=== PATIENT | male | born 1955 | race Caucasian/White ===

== ENCOUNTER 2017-09-19 05:24 | Inpatient (IN) | payer BC, OTHER ==
[~2017-09-19] VITALS: Ht 180.3 cm; Wt 93.2 kg
[2017-09-19] MEDS ORDERED: SODIUM CHLORIDE 0.9% 1,000ML IVBOLUS ONE ×2 (06:00→06:30)
[2017-09-19] MEDS ORDERED: SODIUM CHLORIDE FLUSH 10ML SYR IVF ONE (06:00)
[2017-09-19 06:08] LABS: PH, VENOUS 7.371 pH (7.320-7.420)
[2017-09-19] MEDS ORDERED: ASPI-496 PO (06:11)
[2017-09-19] MEDS ORDERED: OMEG1CAP23 PO (06:11)
[2017-09-19] MEDS ORDERED: ATOR-2 PO (06:11)
[2017-09-19] MEDS ORDERED: FENO160T PO (06:11)
[2017-09-19] MEDS ORDERED: LISI1TAB7 PO (06:11)
[2017-09-19] MEDS ORDERED: NIAC500T4 PO (06:11)
[2017-09-19] MEDS ORDERED: MULT-6 PO (06:11)
[2017-09-19] MEDS ORDERED: CARV12.52 PO (06:11)
[2017-09-19 06:15] LABS: BASOPHILS # (AUTO) 0.04 x10^3/uL (0-0.1); BASOPHILS % (AUTO) 0 % (0-1); EOSINOPHILS # (AUTO) 0.05 x10^3/uL (0-0.4); EOSINOPHILS % (AUTO) 1 % (1-7); LYMPHOCYTES # (AUTO) 1.61 x10^3/uL (1-3.4); LYMPHOCYTES % (AUTO) 15 % (22-44); MD NO; MEAN CORPUSCULAR HEMOGLOBIN 34.2 pg (27.5-34.5); MEAN CORPUSCULAR HGB CONC 34.8 g/dL (33.2-36.2); MEAN CORPUSCULAR VOLUME 98.3 fL (81-97); MEAN PLATELET VOLUME 9.2 fL (7.4-10.4); MONOCYTES # (AUTO) 1.12 x10^3/uL (0.2-0.8); MONOCYTES % (AUTO) 11 % (2-9); NEUTROPHILS # (AUTO) 7.62 x10^3/uL (1.8-6.8); NEUTROPHILS % (AUTO) 73 % (42-75); PLATELET COUNT 206 x10^3/uL (130-400); RED BLOOD COUNT 3.83 x10^6/uL (4.38-5.82); RED CELL DISTRIBUTION WIDTH 12.6 % (9.4-14.8)
[2017-09-19 06:22] LABS: ALANINE AMINOTRANSFERASE 32 U/L (12-78); ALBUMIN 3.7 g/dL (3.4-5.0); ANION GAP 9 mmol/L (5-15); CALCIUM 9.1 mg/dL (8.5-10.1); CHLORIDE 103 mmol/L (98-107); CREATININE 2.65 mg/dL (0.7-1.3)
[2017-09-19 06:24] LABS: ALKALINE PHOSPHATASE 42 U/L (45-117); BILIRUBIN,TOTAL 1.3 mg/dL (0.2-1.0); TOTAL PROTEIN 7.4 g/dL (6.4-8.2)
[2017-09-19 06:42] LABS: HEMOGLOBIN A1C 6.6 % (4.2-6.3)
[2017-09-19 06:45] LABS: ACETONE, SERUM Negative (Negative)
[2017-09-19 08:06] VITALS: BP 112/69
[2017-09-19 08:13] VITALS: BP 112/69
[2017-09-19] MEDS ORDERED: POLYETHYLENE GLYCOL 17 GM PACKET PO PRN (10:00)
[2017-09-19] MEDS ORDERED: morphine SULFATE 10 MG/ML, 1ML IVPush PRN (10:00)
[2017-09-19] MEDS ORDERED: OXYcodone IR 5MG TABLET PO PRN (10:00)
[2017-09-19] MEDS ORDERED: DOCUSATE 100 MG CAPSULE PO PRN (10:00)
[2017-09-19] MEDS ORDERED: ONDANSETRON ODT 4 MG PO PRN (10:00)
[2017-09-19] MEDS ORDERED: PROMETHAZINE 25 MG/ML, 1ML IM PRN (10:00)
[2017-09-19] MEDS ORDERED: hydrALAzine 20 MG/ML, 1ML IVPush PRN (10:00)
[2017-09-19] MEDS ORDERED: ONDANSETRON 2MG/ML, 2ML IVPush PRN (10:00)
[2017-09-19] MEDS ORDERED: ACETAMINOPHEN 325 MG TABLET PO PRN (10:00)
[2017-09-19] MEDS ORDERED: BISACODYL 10 MG SUPP PR PRN (10:00)
[2017-09-19] MEDS: SODIUM CHLORIDE 0.9% 1,000 ML IV SCH ×2 (10:31→18:18)
[2017-09-19] MEDS: HEPARIN 5,000 UNITS/ML, 1ML SQ SCH ×2 (10:32→18:18)
[2017-09-19] MEDS: NIACIN 500 MG TABLET.ER PO SCH (10:32)
[2017-09-19] MEDS: OMEGA-3/FISH OIL CAPSULE PO SCH ×2 (10:32→21:18)
[2017-09-19] MEDS: ASPIRIN 81 MG TABLET EC PO SCH (10:32)
[2017-09-19] MEDS: MULTIVITAMIN 1 TABLET PO SCH (10:32)
[2017-09-19] MEDS: FENOFIBRATE 145 MG TABLET PO SCH (10:33)
[2017-09-19 10:36] LABS: FREE T4 (FREE THYROXINE) 1.25 ng/dL (0.76-1.46); THYROID STIMULATING HORMONE 3.26 mIU/L (0.358-3.740)
[2017-09-19 11:11] LABS: MICROSCOPIC AUTO
[2017-09-19 11:13] LABS: CULTURE INDICATED? YES
[2017-09-19 12:43] LABS: BASOPHILS # (AUTO) 0.02 x10^3/uL (0-0.1); BASOPHILS % (AUTO) 0 % (0-1); EOSINOPHILS # (AUTO) 0.01 x10^3/uL (0-0.4); EOSINOPHILS % (AUTO) 0 % (1-7); LYMPHOCYTES # (AUTO) 1.31 x10^3/uL (1-3.4); LYMPHOCYTES % (AUTO) 23 % (22-44); MD NO; MEAN CORPUSCULAR HEMOGLOBIN 34.5 pg (27.5-34.5); MEAN CORPUSCULAR HGB CONC 35.3 g/dL (33.2-36.2); MEAN CORPUSCULAR VOLUME 97.8 fL (81-97); MEAN PLATELET VOLUME 8.6 fL (7.4-10.4); MONOCYTES # (AUTO) 0.64 x10^3/uL (0.2-0.8); MONOCYTES % (AUTO) 11 % (2-9); NEUTROPHILS # (AUTO) 3.81 x10^3/uL (1.8-6.8); NEUTROPHILS % (AUTO) 66 % (42-75); PLATELET COUNT 188 x10^3/uL (130-400); RED BLOOD COUNT 3.42 x10^6/uL (4.38-5.82); RED CELL DISTRIBUTION WIDTH 12.8 % (9.4-14.8)
[2017-09-19 12:58] LABS: TROPONIN I < 0.015 ng/mL (0.000-0.045)
[2017-09-19 13:22] VITALS: BP 124/74
[2017-09-19 19:15] VITALS: BP 129/70
[2017-09-19 19:50] LABS: TROPONIN I < 0.015 ng/mL (0.000-0.045)
[2017-09-19] MEDS: ATORVASTATIN 80 MG TABLET PO SCH (21:18)
[2017-09-20 01:30] VITALS: BP 113/70
[2017-09-20] MEDS: HEPARIN 5,000 UNITS/ML, 1ML SQ SCH ×3 (02:00→18:00)
[2017-09-20] MEDS: SODIUM CHLORIDE 0.9% 1,000 ML IV SCH (02:09)
[2017-09-20 05:37] LABS: CHLORIDE 113 mmol/L (98-107)
[2017-09-20 05:49] LABS: ALANINE AMINOTRANSFERASE 23 U/L (12-78); ALBUMIN 2.9 g/dL (3.4-5.0); ALKALINE PHOSPHATASE 32 U/L (45-117); ANION GAP 7 mmol/L (5-15); CALCIUM 8.1 mg/dL (8.5-10.1); CHOL/HDL RATIO 3.5; CHOLESTEROL, TOTAL 114 mg/dL (140-239); CREATININE 1.33 mg/dL (0.7-1.3); HDL CHOL % 29 % (26-37); HDL CHOLESTEROL (DIRECT) 33 mg/dL (40-60); LDL CHOLESTEROL,CALCULATED 56 mg/dL (54-169); LDL/HDL RATIO 1.7 (0.5-3.0); TOTAL PROTEIN 6.1 g/dL (6.4-8.2); TRIGLYCERIDES 124 mg/dL (50-200); VLDL CHOLESTEROL 25 mg/dL (0-25)
[2017-09-20 06:49] VITALS: BP 108/65
[2017-09-20] MEDS ORDERED: REGADENOSON 0.4 MG/5 ML SYRINGE ONE (08:49)
[2017-09-20] MEDS: MULTIVITAMIN 1 TABLET PO SCH (10:33)
[2017-09-20] MEDS: NIACIN 500 MG TABLET.ER PO SCH (10:34)
[2017-09-20] MEDS: FENOFIBRATE 145 MG TABLET PO SCH (10:34)
[2017-09-20] MEDS: ASPIRIN 81 MG TABLET EC PO SCH (10:34)
[2017-09-20] MEDS: OMEGA-3/FISH OIL CAPSULE PO SCH ×2 (10:34→21:11)
[2017-09-20 12:54] VITALS: BP 142/82
[2017-09-20 19:29] VITALS: BP 145/79
[2017-09-20] MEDS: ATORVASTATIN 80 MG TABLET PO SCH (21:11)
[2017-09-21] VITALS (7 sets, daily range): BP systolic 120–156; BP diastolic 71–91
[2017-09-21] MEDS: HEPARIN 5,000 UNITS/ML, 1ML SQ SCH ×3 (00:31→18:39)
[2017-09-21 08:56] LABS: ALBUMIN 3.1 g/dL (3.4-5.0); ANION GAP 9 mmol/L (5-15); BASOPHILS # (AUTO) 0.04 x10^3/uL (0-0.1); BASOPHILS % (AUTO) 1 % (0-1); CALCIUM 8.8 mg/dL (8.5-10.1); CHLORIDE 111 mmol/L (98-107); CREATININE 1.21 mg/dL (0.7-1.3); EOSINOPHILS % (AUTO) 2 % (1-7); LYMPHOCYTES # (AUTO) 1.81 x10^3/uL (1-3.4); LYMPHOCYTES % (AUTO) 27 % (22-44); MD NO; MEAN CORPUSCULAR HEMOGLOBIN 33.2 pg (27.5-34.5); MEAN CORPUSCULAR HGB CONC 34.1 g/dL (33.2-36.2); MEAN CORPUSCULAR VOLUME 97.3 fL (81-97); MEAN PLATELET VOLUME 8.3 fL (7.4-10.4); MONOCYTES % (AUTO) 7 % (2-9); NEUTROPHILS # (AUTO) 4.22 x10^3/uL (1.8-6.8); NEUTROPHILS % (AUTO) 63 % (42-75); PLATELET COUNT 228 x10^3/uL (130-400); RED BLOOD COUNT 3.68 x10^6/uL (4.38-5.82); RED CELL DISTRIBUTION WIDTH 12.7 % (9.4-14.8)
[2017-09-21] MEDS: FENOFIBRATE 145 MG TABLET PO SCH (09:05)
[2017-09-21] MEDS: ASPIRIN 81 MG TABLET EC PO SCH (09:05)
[2017-09-21] MEDS: NIACIN 500 MG TABLET.ER PO SCH (09:05)
[2017-09-21] MEDS: OMEGA-3/FISH OIL CAPSULE PO SCH ×2 (09:06→20:35)
[2017-09-21] MEDS: MULTIVITAMIN 1 TABLET PO SCH (09:06)
[2017-09-21] MEDS: ATORVASTATIN 80 MG TABLET PO SCH (20:35)
[2017-09-22 01:43] VITALS: BP 136/80
[2017-09-22] MEDS: HEPARIN 5,000 UNITS/ML, 1ML SQ SCH ×2 (02:00→10:00)
[2017-09-22 04:57] LABS: BASOPHILS # (AUTO) 0.04 x10^3/uL (0-0.1); BASOPHILS % (AUTO) 1 % (0-1); EOSINOPHILS # (AUTO) 0.11 x10^3/uL (0-0.4); EOSINOPHILS % (AUTO) 1 % (1-7); LYMPHOCYTES # (AUTO) 2.04 x10^3/uL (1-3.4); LYMPHOCYTES % (AUTO) 26 % (22-44); MD NO; MEAN CORPUSCULAR HEMOGLOBIN 33.3 pg (27.5-34.5); MEAN CORPUSCULAR HGB CONC 33.9 g/dL (33.2-36.2); MEAN CORPUSCULAR VOLUME 98.3 fL (81-97); MEAN PLATELET VOLUME 8.7 fL (7.4-10.4); MONOCYTES # (AUTO) 0.52 x10^3/uL (0.2-0.8); MONOCYTES % (AUTO) 7 % (2-9); NEUTROPHILS # (AUTO) 5.02 x10^3/uL (1.8-6.8); NEUTROPHILS % (AUTO) 65 % (42-75); PLATELET COUNT 246 x10^3/uL (130-400); RED BLOOD COUNT 3.74 x10^6/uL (4.38-5.82); RED CELL DISTRIBUTION WIDTH 12.6 % (9.4-14.8)
[2017-09-22 05:07] LABS: ALBUMIN 3.1 g/dL (3.4-5.0); ANION GAP 8 mmol/L (5-15); CALCIUM 8.8 mg/dL (8.5-10.1); CHLORIDE 111 mmol/L (98-107)
[2017-09-22 05:15] LABS: ALANINE AMINOTRANSFERASE 23 U/L (12-78); ALKALINE PHOSPHATASE 34 U/L (45-117); BILIRUBIN,TOTAL 1.1 mg/dL (0.2-1.0); CREATININE 1.15 mg/dL (0.7-1.3); TOTAL PROTEIN 6.5 g/dL (6.4-8.2)
[2017-09-22 07:35] VITALS: BP 127/71
[2017-09-22] MEDS: OMEGA-3/FISH OIL CAPSULE PO SCH (09:05)
[2017-09-22] MEDS: ASPIRIN 81 MG TABLET EC PO SCH (09:05)
[2017-09-22] MEDS: NIACIN 500 MG TABLET.ER PO SCH (09:06)
[2017-09-22] MEDS: MULTIVITAMIN 1 TABLET PO SCH (09:08)
[2017-09-22] MEDS: FENOFIBRATE 145 MG TABLET PO SCH (09:09)
== END 2017-09-22 16:10 | disposition home or self-care (01) | DRG 314 ==
LOC: ED 06:28 → 4EST 07:45 → DCLOUNGE 09-22 15:53
PROVIDERS: ADMIT Internal Medicine; ATTEND Internal Medicine
DX: I95.9 Hypotension, unspecified (principal); K85.90 Acute pancreatitis without necrosis or infection, unspecified; N17.9 Acute kidney failure, unspecified; R00.1 Bradycardia, unspecified; Z95.1 Presence of aortocoronary bypass graft; D53.9 Nutritional anemia, unspecified; E11.65 Type 2 diabetes mellitus with hyperglycemia; E78.5 Hyperlipidemia, unspecified; E86.0 Dehydration; I10 Essential (primary) hypertension; I25.10 Atherosclerotic heart disease of native coronary artery without angina pectoris; E11.40 Type 2 diabetes mellitus with diabetic neuropathy, unspecified; I25.2 Old myocardial infarction; I35.0 Nonrheumatic aortic (valve) stenosis; K76.0 Fatty (change of) liver, not elsewhere classified; N28.1 Cyst of kidney, acquired; Z79.899 Other long term (current) drug therapy; Z87.891 Personal history of nicotine dependence; Z88.0 Allergy status to penicillin; Z82.49 Family history of ischemic heart disease and other diseases of the circulatory system; Z79.82 Long term (current) use of aspirin
CPT/HCPCS: 36415; 71045; 76700; 78452; 80053; 80061; 80069; 81001; 82010; 82803; 83036; 83690; 83735; 84439; 84443; 84484; 85025; 87086; 93005; 93017; 93306; 93880; 96360; J1644; J2785; A9502; C9898; J7030